=== PATIENT | male | born 1970 | race Caucasian/White ===

== ENCOUNTER → 2020-09-21 10:04 | Outpatient (CLI) | payer OTHER, SELFPAY ==
--- NOTE | 2020-09-21 10:14 | MRI_ITS ---
STUDY: MRI LEFT MIDFOOT REASON FOR EXAM: Medial and plantar left foot and ankle pain after injury in December. TECHNIQUE: Standardized fat and water weighted pulse sequences were obtained in all 3 orthogonal planes. COMPARISON: None. FINDINGS: Normal talonavicular articulation. Normal calcaneocuboid articulation. Normal navicular-cuneiform articulations. Normal intercuneiform articulations. Normal first tarsometatarsal articulation. Normal Lisfranc ligament. Normal second and third tarsometatarsal articulations. Normal cuboid fourth and cuboid fifth tarsometatarsal articulation. Normal first through fifth metatarsi. Normal tibialis anterior tendon. Normal extensor hallucis longus tendon. Normal extensor digitorum longus tendons. Normal peroneus longus tendon and distal insertion. Normal peroneus brevis tendon and distal insertion. Normal intrinsic muscles of the mid and forefoot region. Normal extensor digitorum brevis muscle. There is mild focal thickening of the plantar fascia plantar to the base of the first metatarsal (T2 sagittal series 8 images 21-23) measuring approximately 0.5 cm in transverse dimension, suggestive of plantar fibromatosis. MRI/Lower Ext/No Jt/w/o IMPRESSION: Mild focal thickening of the plantar fascia at the level of the first metatarsal base suggestive of mild plantar fibromatosis. Electronically Signed: Alec Maria MD at 13:18 EST Tel , Service support ,
--- NOTE | 2020-09-21 10:15 | MRI_ITS ---
STUDY: MRI LEFT ANKLE WITHOUT CONTRAST REASON FOR EXAM: Medial and plantar left foot and ankle pain after injury in December. TECHNIQUE: Standardized fat and water weighted pulse sequences were obtained in all 3 orthogonal planes. COMPARISON: None. FINDINGS: Normal subcutis adipose space. Normal posterior tibialis tendon. Normal flexor digitorum longus tendon. Normal flexor hallucis longus tendon. Normal peroneus longus and brevis tendons. Normal tibialis anterior tendon. Normal extensor hallucis longus tendon. Normal extensor digitorum longus tendons. Normal Achilles tendon and teno-osseous insertion. There is mild interstitial edema of the central cord of the plantar fascia (inversion recovery sagittal images 11-13). There is mild reactive bone edema of the posterior tuberosity of the calcaneus at the origin of the plantar fascia (inversion recovery sagittal images 12-16). Normal intrinsic muscles of the rearfoot. Normal distal tibiofibular syndesmotic ligamentous complex. There is a chronic sprain with thickening of the anterior talofibular ligament (T2 axial image 17). Normal calcaneofibular and posterior talofibular ligaments. Normal subtalar ligaments and sinus tarsi. Normal deltoid ligamentous complexes. Normal plantar calcaneonavicular (spring) ligament. There is a small tibiotalar joint effusion (inversion recovery sagittal image 15). Normal talar dome. There is a small posterior subtalar joint effusion (inversion recovery sagittal images 15, 16). Normal talonavicular articulation. Normal calcaneocuboid articulation. Normal navicular-cuneiform articulations. MRI/Lower Ext Joint Only (Routine) IMPRESSION: Chronic sprain of the anterior talofibular ligament. Mild plantar fasciitis with mild reactive bone edema in the posterior tuberosity of the calcaneus. Small tibiotalar and posterior subtalar joint effusions. Electronically Signed: Alec Maria MD at 13:19 EST Tel , Service support ,
== END ==
PROVIDERS: PCP Family Medicine; Referring Provider Podiatrist Foot & Ankle Surgery; Visit Provider Podiatrist Foot & Ankle Surgery
DX: M72.2 Plantar fascial fibromatosis (principal); S93.432A Sprain of tibiofibular ligament of left ankle, initial encounter; M79.672 Pain in left foot
CPT/HCPCS: 73718; 73721